=== PATIENT | male | born 1950 | race Caucasian/White ===

== ENCOUNTER 2019-09-11 11:38 | Emergency (ER) | payer MEDICARE ==
[2019-09-11 12:11] LABS: ABS Basophils 0.1 10^3/ul (0-0.2); ABS Eosinophils 0.4 10^3/ul (0-0.6); ABS Lymphocytes 2.2 10^3/ul (1.0-4.8); ABS Neutrophils 5.3 10^3/ul (1.5-7.7); Hematocrit 48 % (42-52); Hemoglobin 15.7 g/dL (14.0-18.0); Lymphocyte % 24.3 %; Mean Corpuscular HGB Conc 33 g/dL (31-36); Mean Corpuscular Hemoglobin 30 pg (27-31); Mean Corpuscular Volume 92 fL (80-94); Mean Platelet Volume 8.1 fL (7.4-10.4); Nucleated Red Blood Cells % 0.1; Platelet Count 187 10^3/uL (150-450); Red Blood Count 5.22 10^6 /uL (4.18-5.48); Red Cell Distribution Width 15 % (10-15); White Blood Count 8.9 10^3/uL (3.5-10.8)
--- NOTE | 2019-09-11 12:12 | ED ---
HPI Chest Pain - HPI Summary HPI Summary: This patient is a 69 y/o male presenting to [facility] c/o mid sternal chest pain for the past 1.5 days with left shoulder pain. Patient describes a low level burning sensation in his midsternal chest. Denies pain radiating to his arm or jaw. However notes he had one episode of jaw pain on bilateral sides that has resolved since then. Denies chest pain on exertion. Denies fever, SOB, cough, sore throat, abd pain, pain or swelling in legs. He notes his chest pain was worse last night. Patient has taken Tums with mild relief. Patient called [facility] which he has seen for a colonoscopy, and was referred to the ED. Patient had acid reflux 1 month ago that lasted for 1.5 days but was not as intense as today. He has arthritis on left shoulder. 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 Patient notes for the last 6 months PVCs have been hardly noticeable. Denies hx of DM, HTN. He denies tobacco use and alcohol use. - History of Current Complaint Chief Complaint: EDChestPainROMI Time Seen by Provider: 09/11/19 11:52 Hx Obtained From: Patient Onset/Duration: Started Days Ago, Still Present Timing: Lasting Days Current Severity: Mild Pain Intensity: 2 Pain Scale Used: 0-10 Numeric Chest Pain Location: Mid Sternal Chest Pain Radiates: No Character: Burning Aggravating Factor(s): Nothing Alleviating Factor(s): Nothing Associated Signs and Symptoms: Positive: Chest Pain, Other: - POSITIVE: left shoulder pain. Negative: Shortness of Breath, Swelling, Fever, Cough, Abdominal Pain, Calf Pain/Swelling - Allergy/Home Medications Allergies/Adverse Reactions: Allergies Allergy/AdvReac Type Severity Reaction Status Date / Time No Known Allergies Allergy Verified 09/11/19 11:49 Home Medications: Home Medications Atenolol TAB* [Tenormin TAB*] 12.5 mg PO BID 07/07/14 [History Confirmed ] Ibuprofen TAB* [Advil TAB*] 400 mg PO Q8H PRN 10/26/18 [History Confirmed ] [place]-3/Dha/Epa/Fish Oil [Fish Oil 1,000 mg Softgel] 1,000 mg PO DAILY 10/26/18 [History Confirmed 09/11/19] Levothyroxine TAB* [Synthroid TAB*] 200 mcg PO DAILY 09/11/19 [History Confirmed 09/11/19] Omeprazole CAP (NF) [Prilosec CAP* 20 MG] 20 mg PO DAILY #30 09/11/19 [Rx ] PMH/Surg Hx/FS Hx/Imm Hx Endocrine/Hematology History: Reports: Hx Diabetes - pt believes he is not, but has been told he is., Hx Thyroid Disease Cardiovascular History: Reports: Hx Hypertension, Other Cardiovascular Problems/ Disorders - PVCS AT TIMES- HAS HAD FOR YEARS Denies: Hx Pacemaker/ICD Respiratory History: Reports: Hx Sleep Apnea - PROBABLE Denies: Hx Asthma History: Reports: Hx Kidney Stones - BILATERAL Denies: Hx Renal Disease Musculoskeletal History: Reports: Hx Arthritis - HANDS/ FEET, Hx Gout - 2014 in toe Sensory History: Denies: Hx Contacts or Glasses, Hx Hearing Aid Opthamlomology History: Denies: Hx Contacts or Glasses Psychiatric History: Denies: Hx Panic Disorder - Surgical History Surgical History: Yes Surgery Procedure, Year, and Place: LEFT Knee 1970S for ligament. 2015- GALL BLADDER REMOVAL- DR AUDRA Gutierrez Anesthesia Reactions: No Infectious Disease History: No Infectious Disease History: Denies: Traveled Outside the [place] in Last 30 Days - Family History Known Family History: Positive: Cardiac Disease - mother with fatal OR, Diabetes - brother - Social History Alcohol Use: Rare Alcohol Amount: ONCE A MONTH Substance Use Type: Reports: None Smoking Status (MU): Never Smoked Tobacco Review of Systems Negative: Fever Positive: Chest Pain Negative: Shortness Of Breath, Cough Negative: Abdominal Pain Musculoskeletal: Other - POSITIVE: left shoulder pain Negative: Other - NEGATIVE: pain or swelling in legs All Other Systems Reviewed And Are Negative: Yes Physical Exam - Summary Physical Exam Summary: Constitutional: Well-developed, Well-nourished, Alert. (-) Distressed Skin: Warm, Dry HENT: Normocephalic; Atraumatic Eyes: Conjunctiva normal Neck: Musculoskeletal ROM normal neck. (-) JVD, (-) Stridor, (-) Tracheal deviation Cardio: Rhythm regular, rate normal, Heart sounds normal; Intact distal pulses; The pedal pulses are 2+ and symmetric. Radial pulses are 2+ and symmetric. (-) Murmur Pulmonary/Chest wall: Effort normal. (-) Respiratory distress, (-) Wheezes, (-) Rales Abd: Soft, (-) tenderness, (-) Distension, (-) Guarding, (-) Rebound Musculoskeletal: (-) Edema Lymph: (-) Cervical adenopathy Neuro: Alert, Oriented x3 Psych: Mood and affect Normal Triage Information Reviewed: Yes Vital Signs On Initial Exam: Initial Vitals Temp Pulse Resp BP Pulse Ox 99.3 F 82 16 163/83 98 09/11/19 11:47 09/11/19 11:47 09/11/19 11:47 09/11/19 11:47 09/11/19 11:47 Vital Signs Reviewed: Yes Procedures - Sedation Patient Received Moderate/Deep Sedation with Procedure: No Diagnostics - Vital Signs Vital Signs Temp Pulse Resp BP Pulse Ox 09/11/19 11:47 99.3 F 82 16 163/83 98 - Laboratory Result Diagrams: 09/11/19 11:53 09/11/19 11:53 Lab Statement: Any lab studies that have been ordered have been reviewed, and results considered in the medical decision making process. - Radiology Chest XR Radiology Interpretation Completed By: Radiologist Summary of Radiographic Findings: IMPRESSION: No active cardiopulmonary disease is noted. Dr. Rodriguez has reviewed this report. - EKG 1143 Cardiac Rate: NL - at 80 bpm EKG Rhythm: Sinus Rhythm Summary of EKG Findings: EKG at 1143 shows sinus rhythm at a rate of [address] ischemic changes[address] Dr. Rodriguez has reviewed and interpreted this EKG. Chest Pain Course/Dx - Course Assessment/Plan: Patient is a 69 y/o male, with hx of PVCs on atenolol, presenting to [facility] c/o mid sternal chest pain for the past 1.5 days with left shoulder pain. Patient describes a low level burning sensation in his midsternal chest. Lab results are unremarkable except for creatinine is 1.25, glucose is 116. EKG shows a normal sinus rhythm at a rate of 80 bpm. Chest XR reveals No active cardiopulmonary disease is noted. Two troponins are both negative. In the ED course the patient was given GI cocktail. Patient will be discharged home and be given a script for omeprazole. Patient has seen Dr. Delvalle, [employer], in the past and will follow up with him for further evaluation and possible upper endoscopy. Patient will also follow up with his PCP in 1-3 days. - Diagnoses Provider Diagnoses: Atypical chest pain, GERD (gastroesophageal reflux disease) Discharge ED - Sign-Out/Discharge Documenting (check all that apply): Patient Departure - Discharge home - Discharge Plan Condition: Stable Disposition: HOME Prescriptions: Omeprazole CAP (NF) [Prilosec CAP* 20 MG] 20 mg PO DAILY #30 cap. Patient Education Materials: Chest Pain (ED), Gastroesophageal Reflux Disease ( ED) Referrals: Duglas Rey MD [Primary Care Provider] - Luis Manuel Delvalle MD [Medical Doctor] - Additional Instructions: RETURN TO THE EMERGENCY DEPARTMENT FOR CHANGING OR WORSENING SYMPTOMS. Follow up with Dr. Delvalle, [employer], for further evaluation and possible upper endoscopy. Follow up with your primary care provider in 1-3 days. - Billing Disposition and Condition Condition: STABLE Disposition: Home - Attestation Statements Document Initiated by Rajiv: Yes Documenting Scribe: Jessica Lyons Provider For Whom Rajiv is Documenting (Include Credential): Zachary Rodriguez DO [employer] Attestation: Jessica Rahman, gaelibed for Zachary Rodriguez DO on 09/11/19 at 1701. Scribe Documentation Reviewed: Yes Provider Attestation: The documentation as recorded by the Jessica sauceda accurately reflects the service I personally performed and the decisions made by , Zachary Rodriguez DO Status of [employer] Document: Viewed
[2019-09-11] MEDS ORDERED: Lidocaine 2% VISCOUS* 15 ML UDC PO ONE (12:14)
[2019-09-11] MEDS ORDERED: Al Hydrox/Mg Hydrox/Simet LIQ* 30 ML UDC PO ONE (12:14)
[2019-09-11 12:15] LABS: INR 1.06 (0.82-1.09)
[2019-09-11 12:31] LABS: Albumin 4.2 g/dL (3.2-5.2); Calcium 9.8 mg/dL (8.6-10.3); Potassium 4.4 mmol/L (3.5-5.0); Total Bilirubin 0.5 mg/dL (0.2-1.0)
[2019-09-11 12:37] LABS: Albumin/Globulin Ratio 1.2 (1-3); BUN/Creatinine Ratio 20.8 (8-20); EGFR African American 69.3 (>60); EGFR Non-African American 57.3 (>60); Globulin 3.4 g/dL (2-4); Total Protein 7.6 g/dL (6.4-8.9)
[2019-09-11 12:39] LABS: Troponin I 0.01 ng/mL (<0.03)
[2019-09-11 15:16] VITALS: BP 135/69
== END 2019-09-11 15:14 | disposition home or self-care (01) ==
LOC: ED 11:38
DX: R07.89 Other chest pain (principal); K21.9 Gastro-esophageal reflux disease without esophagitis; E11.9 Type 2 diabetes mellitus without complications; E03.9 Hypothyroidism, unspecified; I10 Essential (primary) hypertension; Z90.49 Acquired absence of other specified parts of digestive tract; Z79.890 Hormone replacement therapy; Z79.899 Other long term (current) drug therapy
CPT/HCPCS: 36415; 71045; 80053; 84484; 85025; 85610; 93005; 99283; A9270-GY